=== PATIENT | female | born 1995 | race Caucasian/White ===

== ENCOUNTER 2021-11-11 04:37 | Inpatient (IN) ==
[2021-11-11] MEDS ORDERED: OXYTOCIN 30 UNITS/500 ML BAG IV PRN (06:24)
[2021-11-11] MEDS ORDERED: LIDOCAINE 1% LOCAL 20 ML VIAL INFIL PRN (06:24)
--- NOTE | 2021-11-11 06:42 | Labor Progress Brief Note ---
Date of Service November 11, 2021 Assessment & Plan (1) : Plan: met pt and reviewed PNC FHR; CAT1 Ctx 2-3mins VE by nurse /- Bedside sono; VT Plan admit labs anticipate VD Results & Data ([facility]) Vital Signs (Past 12 Hours) Vital Signs Temp Pulse Resp BP 11/11/21 04:53 80 118/71 11/11/21 04:55 36.6 C 18
[2021-11-11] MEDS: LACTATED RINGER'S 1,000 ML IV PRN ×4 (06:46→20:37)
[2021-11-11 06:53] LABS: Hemoglobin 11.8 g/dl (12.0-16.0); Mean Corpuscular Hemoglobin 30.9 pg (25.0-34.0); Mean Corpuscular Hgb Conc 34.7 g/dL (32.0-36.0); Mean Platelet Volume 10.3 fL (9.4-12.3); Platelet Count 219 K/uL (130-400); RDW Coefficient of Variation 12.5 % (11.5-14.5); RDW Standard Deviation 40.1 fL (36.4-46.3); Red Blood Count 3.82 M/uL (3.93-5.22); White Blood Count 14.12 K/ul (4.8-10.8)
[2021-11-11] MEDS ORDERED: fentaNYL citrate 100 MCG/2 ML VIAL ONE (07:08)
[2021-11-11] MEDS ORDERED: ePHEDrine sulfate 50 MG/ML AMP ONE (07:08)
[2021-11-11] MEDS ORDERED: BUPIVACAINE 0.25% 30 ML VIAL ONE (07:08)
[2021-11-11] MEDS ORDERED: SODIUM CHLORIDE 0.9% INJ 10 ML VIAL ONE (07:08)
[2021-11-11] MEDS ORDERED: LIDOCAINE 2%/EPINEPHRINE 1:200,000 20 ML SDV ONE (07:08)
[2021-11-11] MEDS ORDERED: fentaNYL 2MCG/ML ROPIVACAINE 1.25MG/ML 100 ML BAG EPI ONE (07:09)
[2021-11-11] MEDS ORDERED: NALOXONE HCL 1 MG in SODIUM CHLORIDE 0.9% 1000ML 1,000 ML IV PRN (08:24)
[2021-11-11] MEDS ORDERED: ONDANSETRON INJ 2 MG/ML 2 ML VIAL IV PRN (08:24)
[2021-11-11] MEDS ORDERED: NALOXONE HCL 0.4 MG/1 ML VIAL/CARP IV PRN (08:24)
[2021-11-11] MEDS ORDERED: PROMETHAZINE HCL 6.25 MG in SODIUM CHLORIDE 0.9% 50 ML IV PRN (08:24)
[2021-11-11] MEDS ORDERED: ePHEDrine sulfate 50 MG/ML AMP IV PRN (08:24)
[2021-11-11] MEDS ORDERED: diphenhydrAMINE 50 MG/ML VIAL IV PRN (08:24)
[2021-11-11] MEDS ORDERED: NALBUPHINE HCL INJ 10 MG/ML AMP IV PRN (08:24)
--- NOTE | 2021-11-11 08:24 | Anesthesiology Consultation ---
Date of Service November 11, 2021 Assessment & Plan Chart Review Chart Review: Patient NOT seen in Pre Admission Testing and Acceptable Risk for Labor Epidural Consults Requested none ASA ASA2 Proposed Anesthesia Anesthesia Type: Labor Epidural Risk / Benefits Reviewed With: PT / POA / Parent / Guardian, Accepts Plan and Informed Consent Obtained History Height/Weight Height: 5 ft Weight: 64.9 kg Allergies Allergy/AdvReac Type Severity Reaction Status Date / Time Penicillins Allergy Hives Verified 04/17/20 16:55 Medications Home Medications Medication Instructions Recorded Confirmed Last Taken 1 tab PO DAILY 11/09/21 11/11/21 Unknown Active Medications Generic Name Dose Route Start Last Admin Trade Name Freq PRN Reason Stop Dose Admin Lactated Ringer's 1,000 mls @ 125 mls/hr 11/11/21 06:24 11/11/21 08:06 Lr IV 11/13/21 06:23 999 mls/hr .Q8H PRN Infusion L&D Protocol Protocol Past Medical History Medical History Colonoscopy planned 2016 Normal esophagogastroduodenoscopy (EGD) 2016 Exercise / Class Metabolic Activity II 4-5 Yardwork/Stairs/Walk up hill Past Surgical History Surgical History [place] teeth extracted 2009 Past Anesthesia History No Hx of Anesthesia Complications and No Family Hx of Anesthesia Complications History of PONV No Hx of PONV and No Hx of Motion Sickness Social History Smoking Status: Never smoker Hx Alcohol Use: No Hx Substance Use: No Physical Exam Vital Signs Last Vital Signs Temp 36.5 C 11/11/21 06:56 Pulse 74 11/11/21 08:21 Resp 20 11/11/21 06:56 BP 102/60 11/11/21 08:21 Pulse Ox 100 11/11/21 08:20 ENMT Mouth: no dentition abnormality Thyromental Distance: > or= 3.5 Finger Breadths Mallampati Class: II Neck normal visual inspection Respiratory normal respiratory effort Auscultation: lungs clear to auscultation bilaterally Cardiovascular Rate/Rhythm: regular rate and regular rhythm Psychiatric Orientation: alert Testing Laboratory Results 11/11/21 06:41
--- NOTE | 2021-11-11 09:00 | Obstetrical Progress Note ---
Date of Service November 11, 2021 Assessment & Plan (1) : Present on Admission?: Yes (2) Normal labor: Present on Admission?: Yes Plan continue monitoring Admission and Anticipated Discharge Date Admission Date: November 11, 2021 Subjective normal labor Physical Exam Constitutional: WD/WN, vitals as above well developed and well nourished Genitourinary: no vaginal lesions, no adnexal mass Manual OB Exam: + cervical dilation 5 cm, + cervical effacement 80%, + station 0 and + amniotic fluid meconium OB Exam Monitor Tracing: + external FHT monitor used, + external uterine monitor used and + category I Results & Data ([facility]) Vital Signs (Past 12 Hours) Vital Signs Temp Pulse Resp BP Pulse Ox 11/11/21 08:50 83 100 11/11/21 08:45 69 100 11/11/21 08:43 69 102/62 11/11/21 08:40 73 100 11/11/21 08:35 77 100 11/11/21 08:30 79 100 11/11/21 08:27 66 107/62 11/11/21 08:25 100 11/11/21 08:25 77 11/11/21 08:25 71 105/66 11/11/21 08:23 77 103/65 11/11/21 08:20 70 100 11/11/21 08:21 74 102/60 11/11/21 08:19 66 20 99/58 L 11/11/21 08:17 67 100/58 L 11/11/21 08:15 64 104/57 L 99 11/11/21 08:13 78 110/61 11/11/21 08:10 79 100 11/11/21 08:05 85 99 11/11/21 08:00 83 97 11/11/21 06:56 36.5 C 62 20 109/67 11/11/21 04:53 80 118/71 11/11/21 04:55 36.6 C 18
[2021-11-11] MEDS: fentaNYL 2MCG/ML ROPIVACAINE 1.25MG/ML 100 ML BAG EPI PRN ×2 (16:01→20:36)
--- NOTE | 2021-11-11 21:14 | Delivery Summary ---
Vaginal Delivery Summary Date of Service November 11, 2021 Vaginal Delivery Summary pt fully dilated and pushing, placed in dorsal lithotomy position, prepped and draped in usual fashion, pt pushed or an hr, delivered alive viable male infant in JIM position, placed the on the mothers abdomen, bulb suctioned nose and mouth, cord clamped and cut by the FOB. Thck meconium noted. Placenta delivered spontaneously and complete. Second degree vaginal lacerations noted. 5 cc of local lidocaine injected. , repaired with 2.0 Vicryl. IV Pitocin started.
[2021-11-11] MEDS ORDERED: bisacodyL 10 MG SUPP PR PRN (21:16)
[2021-11-11] MEDS ORDERED: ACETAMINOPHEN 325 MG TAB PO PRN (21:16)
[2021-11-11] MEDS ORDERED: DIPHTHERIA/TETANUS/PERTUSSIS 0.5 ML SYR/VIAL IM ONE (21:16)
[2021-11-11] MEDS ORDERED: HYDROCORTISONE ACETATE 25 MG SUPP PR PRN (21:16)
[2021-11-11] MEDS ORDERED: BENZOCAINE 20% AER SPR 82.5 GM CAN EXT PRN (21:16)
[2021-11-12 06:59] LABS: Hematocrit (blood only) 27.7 % (34.1-44.9); Hemoglobin 9.5 g/dl (12.0-16.0); Mean Corpuscular Hemoglobin 30.4 pg (25.0-34.0); Mean Corpuscular Hgb Conc 34.3 g/dL (32.0-36.0); Mean Corpuscular Volume 88.5 fL (80.0-100.0); Mean Platelet Volume 10.4 fL (9.4-12.3); Platelet Count 198 K/uL (130-400); RDW Coefficient of Variation 12.7 % (11.5-14.5); RDW Standard Deviation 40.8 fL (36.4-46.3); Red Blood Count 3.13 M/uL (3.93-5.22); White Blood Count 21.66 K/ul (4.8-10.8)
[2021-11-12] MEDS: PRENATAL VITAMIN 1 TAB PO SCH (08:31)
[2021-11-12] MEDS: IBUPROFEN 600 MG TAB PO PRN ×2 (08:31→20:36)
[2021-11-12] MEDS: DOCUSATE SODIUM 100 MG CAP PO SCH ×2 (08:31→20:37)
--- NOTE | 2021-11-12 09:07 | Anesthesia Procedure Note ---
Date of Service November 12, 2021 Anesthesia Post Epidural Note Vital Signs Vital Signs: Temp Pulse Resp BP Pulse Ox O2 Del Method 98.2 F 83 16 104/66 98 11/12/21 04:30 11/12/21 04:30 11/12/21 04:30 11/12/21 04:30 11/12/21 04:30 11/12/21 04:30 Pain Intensity Lower Back: Pain Intensity: 4 Notes Mental Status: alert / awake / arousable and participated in evaluation Nausea / Vomiting: adequately controlled Pain: adequately controlled Airway Patency, RR, SpO2: stable & adequate BP & HR: stable & adequate Hydration State: stable & adequate Neuraxial Anesthesia: was administered and sensory block is resolving Anesthetic Complications: no major complications apparent and Pt Satisfied with anesthetic care Epidural: Removed without complications and With tip intact
[2021-11-12] MEDS: ACETAMINOPHEN 500 MG TAB PO PRN ×2 (10:55→16:11)
--- NOTE | 2021-11-12 11:37 | Obstetrical Progress Note ---
Date of Service November 12, 2021 Subjective Ambulation: ambulating normally Voiding: no voiding problems Passing Gas:: Yes Diet Tolerance:: regular diet Lochia:: Small Feeding Type:: breast feeding Current Pain Level(1-10): 0 doing well Physical Exam Constitutional WD/WN, vitals as above Gastrointestinal (Abdomen) Inspection/Auscultation: abdomen normal to inspection abdomen soft and non-tender. fundus firm below U Musculoskeletal Extremities: extremities normal to inspection neg Pennie's Skin no rashes, warm and dry Neurologic patellar DTR's 2+ bilat, sensation intact Psychiatric A+Ox3, euthymic affect Results & Data ([facility]) Vital Signs (Past 12 Hours) Vital Signs Temp Pulse Resp BP Pulse Ox O2 Del Method 11/12/21 11:00 36.6 C 78 16 108/75 98 Room Air 11/12/21 08:20 Room Air 11/12/21 08:20 37 C 65 16 107/67 99 Room Air 11/12/21 04:30 36.8 C 83 16 104/66 98 Room Air 11/12/21 00:45 37.3 C 84 16 109/69 97 Room Air Laboratory Results Laboratory Results - last 48 hr 11/11/21 11/11/21 11/12/21 06:41 07:05 06:47 WBC 14.12 H 21.66 H RBC 3.82 L 3.13 L Hgb 11.8 L 9.5 L Hct 34.0 L 27.7 L MCV 89.0 88.5 MCH 30.9 30.4 MCHC 34.7 34.3 RDW Std Deviation 40.1 40.8 RDW Coeff of Kaela 12.5 12.7 Plt Count 219 198 MPV 10.3 10.4 SARS-CoV-2, RNA, NAAT NEGATIVE
[2021-11-12] MEDS ORDERED: bisacodyL 5 MG TABEC PO SCH (20:00)
[2021-11-13] MEDS: ACETAMINOPHEN 500 MG TAB PO PRN ×2 (01:49→12:31)
[2021-11-13 06:36] LABS: Hematocrit (blood only) 24.1 % (34.1-44.9); Hemoglobin 8.3 g/dl (12.0-16.0)
[2021-11-13] MEDS: DOCUSATE SODIUM 100 MG CAP PO SCH (07:55)
[2021-11-13] MEDS: PRENATAL VITAMIN 1 TAB PO SCH (07:55)
[2021-11-13] MEDS: IBUPROFEN 600 MG TAB PO PRN (07:56)
--- NOTE | 2021-11-13 12:05 | Obstetrical Progress Note ---
Date of Service November 13, 2021 Assessment & Plan (1) Normal labor: PPD #2 pt doing well no complaints d/c home with instructions Subjective Ambulation: ambulating normally Voiding: no voiding problems Passing Gas:: Yes Diet Tolerance:: regular diet Lochia:: Small Feeding Type:: breast feeding Review of Systems All systems reviewed & are unremarkable except as noted in HPI & below Physical Exam Constitutional WD/WN, vitals as above well developed and well nourished Eyes PERRL, conjunctivae normal, anicteric sclerae Neck trachea midline, no thyromegaly Respiratory normal respiratory effort, lungs clear to auscultation Auscultation: no crackles, no rales and no wheezes Cardiovascular RRR, no murmur, no edema Gastrointestinal (Abdomen) normal bowel sounds, soft, nontender, no hepatosplenomegaly Uterus is below umbilicus Musculoskeletal no cyanosis or clubbing, extremities motor strength 5/5 Skin no rashes, warm and dry Neurologic patellar DTR's 2+ bilat, sensation intact Psychiatric A+Ox3, euthymic affect Genitourinary normal external appearance Results & Data ([facility]) Vital Signs (Past 12 Hours) Vital Signs Temp Pulse Resp BP Pulse Ox O2 Del Method 11/13/21 08:00 36.7 C 82 16 113/73 98 Room Air
== END 2021-11-13 14:00 | disposition home or self-care (01) | DRG 807 ==
LOC: OPB 04:37 → 4S1 04:40 → 4E2 23:44
DX: Z3A.39 39 weeks gestation of pregnancy; Z37.0 Single live birth; O70.1 Second degree perineal laceration during delivery

== ENCOUNTER 2024-12-15 12:40 | Inpatient (IN) ==
[2024-12-15] MEDS ORDERED: LIDOCAINE 1% LOCAL 20 ML VIAL INFIL PRN (13:13)
[2024-12-15] MEDS ORDERED: OXYTOCIN 30 UNITS/NSS 30 UNITS/500 ML BAG IV PRN ×2 (13:13→19:29)
[2024-12-15 13:43] LABS: Hematocrit (blood only) 34.7 % (37.0-47.0); Hemoglobin 11.6 g/dl (12.0-16.0); Mean Corpuscular Hemoglobin 28.4 pg (25.0-34.0); Mean Corpuscular Volume 85.0 fL (80.0-100.0); Platelet Count 226 K/uL (130-400); RDW Standard Deviation 40.1 fL (36.4-46.3); Red Blood Count 4.08 M/uL (4.20-5.40); White Blood Count 11.57 K/ul (4.8-10.8)
[2024-12-15] MEDS: LACTATED RINGER'S 1,000 ML IV PRN (15:08)
--- NOTE | 2024-12-15 17:35 | Anesthesiology Consultation ---
Date of Service December 15, 2024 Assessment & Plan Chart Review Chart Review: Acceptable Risk for Surgery, Patient NOT seen in Pre Admission Testing and Acceptable Risk for Labor Epidural Consults Requested none ASA ASA2 Proposed Anesthesia Anesthesia Type: Labor Epidural and CSE History Height/Weight Height: 5 ft 5 in Weight: 65.317 kg Allergies Allergy/AdvReac Type Severity Reaction Status Date / Time amoxicillin Allergy Rash Verified 12/11/24 11:31 Penicillins Allergy Hives Verified 12/11/24 11:31 Medications Home Medications Medication Instructions Recorded Confirmed Last Taken No Known Home Medications 11/11/24 12/15/24 Unknown Active Medications Generic Name Dose Route Start Last Admin Trade Name Freq PRN Reason Stop Dose Admin Lactated Ringer's 1,000 mls @ 125 mls/hr 12/15/24 13:13 12/15/24 17:33 Lr IV 12/17/24 13:12 125 mls/hr .Q8H PRN Administration L&D Protocol Protocol Past Medical History Medical History Palpitations ASCUS with positive high risk HPV cervical Encounter for surveillance of nuvaring Endometriosis ADHD SAB (spontaneous ) Anemia GERD Exercise / Class Metabolic Activity II 4-5 Yardwork/Stairs/Walk up hill Past Family History Family History Mother Ovarian cancer Other Dyslipidemia Hypertension Osteoporosis Denies family history of Prostate cancer Myocardial infarction Breast cancer Colorectal cancer Past Surgical History Surgical History Colonoscopy planned 2016 Normal esophagogastroduodenoscopy (EGD) 2017 History of colposcopy 2020, ASCUS/hpv + [place] teeth extracted 2009 Past Anesthesia History No Hx of Anesthesia Complications and No Family Hx of Anesthesia Complications History of PONV No Hx of PONV and No Hx of Motion Sickness Social History Smoking Status: Never smoker Do You Dip or Chew Tobacco: No Hx Alcohol Use: No Hx Substance Use: No Physical Exam Vital Signs Last Vital Signs Temp 36.8 C 12/15/24 17:20 Pulse 80 12/15/24 17:31 Resp 20 12/15/24 17:20 BP 116/69 12/15/24 17:20 Pulse Ox 92 12/15/24 17:31 Testing Laboratory Results 12/15/24 13:25 Electrocardiogram Date: 02/12/24 Findings: + NSR @ (@ 90) Echocardiogram Date: 09/09/24 EF: 60% LV Function: normal RWMA: + none Valvular Disease: + no significant valvular disease Trace -mild TR
[2024-12-15] MEDS: BUPIVACAINE 0.25% PF 30 ML VIAL ONE (17:52)
[2024-12-15] MEDS: fentANYL 2 MCG/ML BUPIVacaine 0.125%-NSS 100ML BAG ONE (18:05)
[2024-12-15] MEDS ORDERED: NALBUPHINE HCL INJ 10 MG/ML AMP IV PRN (18:08)
[2024-12-15] MEDS ORDERED: SODIUM CHLORIDE 0.9% PF INJ 10 ML VIAL EPI STA (18:08)
[2024-12-15] MEDS ORDERED: BUPIVACAINE 0.25% PF 30 ML VIAL EPI PRN (18:08)
[2024-12-15] MEDS ORDERED: ROPIVACAINE 0.5% PF 5 MG/ML 20 ML VIAL EPI PRN (18:08)
[2024-12-15] MEDS ORDERED: NALOXONE HCL 0.4 MG/1 ML VIAL/CARP IV PRN (18:08)
[2024-12-15] MEDS ORDERED: diphenhydrAMINE 50 MG/ML VIAL IV PRN (18:08)
[2024-12-15] MEDS ORDERED: LIDOCAINE 2%/EPINEPHRINE 1:200,000 20 ML PF EPI STA (18:08)
[2024-12-15] MEDS ORDERED: LIDOCAINE 2% MPF LOCAL 5 ML VIAL EPI PRN (18:08)
[2024-12-15] MEDS ORDERED: fentANYL 2 MCG/ML BUPIVacaine 0.125%-NSS 100ML BAG EPI PRN (18:08)
[2024-12-15] MEDS ORDERED: BUPIVACAINE 0.25% PF 30 ML VIAL EPI STA (18:08)
[2024-12-15] MEDS ORDERED: PROMETHAZINE 6.25 MG/50.25 ML BAG IV PRN (18:08)
[2024-12-15] MEDS ORDERED: ONDANSETRON INJ 2 MG/ML 2 ML VIAL IV PRN (18:08)
[2024-12-15] MEDS ORDERED: SODIUM CHLORIDE 0.9% PF INJ 10 ML VIAL EPI PRN (18:08)
[2024-12-15] MEDS ORDERED: NALOXONE HCL 1 MG in SODIUM CHLORIDE 0.9% 1,000 ML IV PRN (18:08)
[2024-12-15] MEDS: LIDOCAINE 2%/EPINEPHRINE 1:200,000 20 ML PF ONE (18:33)
[2024-12-15] MEDS: SODIUM CHLORIDE 0.9% PF INJ 10 ML VIAL ONE (18:34)
[2024-12-15] MEDS ORDERED: NURSING L&D Epidural Breakthrough Pain Update ONE (20:24)
[2024-12-15] MEDS: OXYTOCIN 30 UNITS/NSS 30 UNITS/500 ML BAG IV PRN (23:30)
--- NOTE | 2024-12-15 23:36 | Delivery Summary ---
Vaginal Delivery Summary Date of Service December 15, 2024 Vaginal Delivery Summary and 1st Degree LAC Spontaneous vaginal delivery the patient arrived in active labor second baby at term was 4-1/2 cm she requested epidural after this artificial rupture of membranes for thin meconium she did require some Pitocin augmentation but then presented to fully dilated pushed only for 2 contractions delivering a baby in occiput anterior position once the head was delivered there was no nuchal cord gentle traction allowed delivery of the anterior shoulder under the symphysis pubis gentle traction of the baby resulted in easy delivery no excessive force live vigorous female Cord clamped and cut 1 minute of delayed cord clamping. Bulb suction to the baby placenta removed with traction and simple interrupted 3-0 Vicryl for a small abrasion near the posterior fourchette Pitocin was started for after delivery of the placenta it should also be noted there was a QBL of 10 mL MNPG Vaginal Delivery Charge Delivery Type Details: and 1st Degree LAC
[2024-12-15] MEDS ORDERED: HYDROCORTISONE ACETATE 25 MG SUPP PR PRN (23:43)
[2024-12-15] MEDS: ACETAMINOPHEN 325 MG TAB PO PRN (23:55)
[2024-12-16] MEDS: BENZOCAINE 20% SPRY 85 APPLN/85 GM CAN EXT PRN (01:37)
[2024-12-16] MEDS: DIPHTHER/TETAN/PERTUS Vaccine (Tdap, Adol/Adult) 0.5mL IM ONE (01:58)
[2024-12-16] MEDS: IBUPROFEN 600 MG TAB PO PRN (04:28)
[2024-12-16 06:21] LABS: Hematocrit (blood only) 30.6 % (37.0-47.0); Hemoglobin 10.3 g/dl (12.0-16.0); Mean Corpuscular Hemoglobin 28.8 pg (25.0-34.0); Mean Corpuscular Volume 85.5 fL (80.0-100.0); Platelet Count 192 K/uL (130-400); RDW Standard Deviation 40.8 fL (36.4-46.3); Red Blood Count 3.58 M/uL (4.20-5.40); White Blood Count 13.74 K/ul (4.8-10.8)
--- NOTE | 2024-12-16 06:36 | Obstetrical Progress Note ---
Date of Service December 16, 2024 Assessment & Plan (1) care following vaginal delivery: Plan 29 yo post- day 1 s/p . Feels well today. Vital signs stable Continue post- care Encourage ambulation and Pain controlled with ibuprofen Hgb stable Admission and Anticipated Discharge Date Admission Date: December 15, 2024 Supervising Physician Co-Signing Physician Notes Resident Physician Supervision Note: I interviewed and examined the patient. Discussed with Dr. Ojeda and agree with findings and plan as documented in the note. Any exceptions or clarifications are listed here: [None] Documented By: Roseann Baker MD, FACOG Subjective 29 yo post- day 1 s/p . Ambulation: ambulating normally Voiding: no voiding problems Passing Gas:: Yes Passing Stool:: no Diet Tolerance:: regular diet Lochia:: Small Feeding Type:: breast and bottle feeding Current Pain Level: 5/10 Resting comfortably this AM in NAD. Denies DHILLON, CP, SOB, N/V/D, LE pain/swelling. Review of Systems Review of Systems: All systems reviewed & are unremarkable except as noted in HPI & below Physical Exam Physical Exam: General: patient resting comfortably, NAD, non-toxic in appearance, AA&O x 4, answers questions appropriately. Skin: warm, dry, intact HEENT: NC/AT, anicteric sclera, conjunctiva without injection, moist mucus membranes. Heart: +S1/S2, regular, no m/r/g Lungs: equal air entry bilaterally, no rales/rhonchi/wheezes Abd: +BS, soft, NT/ND, uterine fundus firm 2 FBs below umbilicus Ext: warm, no clubbing/cyanosis or edema, Pennie's neg. Neuro: nonfocal, patient AA&O x 4, speech intact, no facial droop, moving all extremities on command. Results & Data Vital Signs (Past 12 Hours) Vital Signs Temp Pulse Pulse Resp BP BP Pulse Ox 12/16/24 04:50 36.5 C 61 18 101/66 98 12/16/24 02:12 36.9 C 77 18 101/66 98 12/16/24 01:35 36.9 C 20 12/16/24 01:31 88 105/58 L 12/16/24 01:07 81 114/54 L 12/16/24 00:50 85 112/57 L 12/16/24 00:35 36.8 C 18 12/16/24 00:35 86 121/65 12/16/24 00:20 81 111/58 L 12/16/24 00:06 78 115/51 L 12/15/24 23:51 98 H 12/15/24 23:51 161/67 H 12/15/24 23:50 20 12/15/24 23:35 18 12/15/24 23:35 123 H 12/15/24 23:35 99/55 L 12/15/24 23:29 70 12/15/24 23:29 112/55 L 12/15/24 23:15 141 H 12/15/24 23:15 113/64 12/15/24 23:00 71 12/15/24 23:00 95/50 L 12/15/24 22:46 68 12/15/24 22:46 105/51 L 12/15/24 22:30 69 12/15/24 22:30 116/64 12/15/24 22:14 83 12/15/24 22:14 108/55 L 12/15/24 22:00 68 12/15/24 22:00 112/60 12/15/24 21:44 75 12/15/24 21:44 115/62 12/15/24 21:35 36.7 C 12/15/24 21:29 75 12/15/24 21:29 113/63 12/15/24 21:16 85 12/15/24 21:16 144/85 H 12/15/24 21:00 78 12/15/24 21:00 124/62 12/15/24 20:46 79 12/15/24 20:46 102/60 12/15/24 20:30 70 12/15/24 20:30 101/55 L 12/15/24 20:20 100 12/15/24 20:20 85 12/15/24 20:15 100 12/15/24 20:15 65 12/15/24 20:15 112/66 12/15/24 20:10 100 12/15/24 20:10 71 12/15/24 20:05 100 12/15/24 20:05 69 12/15/24 20:00 100 12/15/24 20:00 86 12/15/24 20:00 110/68 12/15/24 19:55 100 12/15/24 19:55 73 12/15/24 19:50 96 12/15/24 19:50 78 12/15/24 19:45 100 12/15/24 19:45 61 12/15/24 19:45 65 12/15/24 19:45 112/66 12/15/24 19:40 100 12/15/24 19:40 97 H 12/15/24 19:35 100 12/15/24 19:35 67 12/15/24 19:30 100 12/15/24 19:30 65 12/15/24 19:29 68 12/15/24 19:29 91/55 L 12/15/24 19:25 100 12/15/24 19:25 69 12/15/24 19:20 100 12/15/24 19:20 73 12/15/24 19:15 100 12/15/24 19:15 74 12/15/24 19:14 65 12/15/24 19:14 100/58 L 12/15/24 19:10 100 12/15/24 19:10 65 12/15/24 19:05 100 12/15/24 19:05 66 12/15/24 19:00 100 12/15/24 19:00 67 12/15/24 19:00 65 12/15/24 19:00 98/51 L 12/15/24 18:55 36.8 C 18 12/15/24 18:55 99 12/15/24 18:55 73 12/15/24 18:50 100 12/15/24 18:50 67 12/15/24 18:45 99 12/15/24 18:45 65 12/15/24 18:45 62 12/15/24 18:45 104/62 12/15/24 18:40 98 12/15/24 18:40 66 O2 Del Method 12/16/24 04:50 Room Air 12/16/24 02:12 Room Air 12/16/24 01:35 12/16/24 01:31 12/16/24 01:07 12/16/24 00:50 12/16/24 00:35 12/16/24 00:35 12/16/24 00:20 12/16/24 00:06 12/15/24 23:51 12/15/24 23:51 12/15/24 23:50 12/15/24 23:35 12/15/24 23:35 12/15/24 23:35 12/15/24 23:29 12/15/24 23:29 12/15/24 23:15 12/15/24 23:15 12/15/24 23:00 12/15/24 23:00 12/15/24 22:46 12/15/24 22:46 12/15/24 22:30 12/15/24 22:30 12/15/24 22:14 12/15/24 22:14 12/15/24 22:00 12/15/24 22:00 12/15/24 21:44 12/15/24 21:44 12/15/24 21:35 12/15/24 21:29 12/15/24 21:29 12/15/24 21:16 12/15/24 21:16 12/15/24 21:00 12/15/24 21:00 12/15/24 20:46 12/15/24 20:46 12/15/24 20:30 12/15/24 20:30 12/15/24 20:20 12/15/24 20:20 12/15/24 20:15 12/15/24 20:15 12/15/24 20:15 12/15/24 20:10 12/15/24 20:10 12/15/24 20:05 12/15/24 20:05 12/15/24 20:00 12/15/24 20:00 12/15/24 20:00 12/15/24 19:55 12/15/24 19:55 12/15/24 19:50 12/15/24 19:50 12/15/24 19:45 12/15/24 19:45 12/15/24 19:45 12/15/24 19:45 12/15/24 19:40 12/15/24 19:40 12/15/24 19:35 12/15/24 19:35 12/15/24 19:30 12/15/24 19:30 12/15/24 19:29 12/15/24 19:29 12/15/24 19:25 12/15/24 19:25 12/15/24 19:20 12/15/24 19:20 12/15/24 19:15 12/15/24 19:15 12/15/24 19:14 12/15/24 19:14 12/15/24 19:10 12/15/24 19:10 12/15/24 19:05 12/15/24 19:05 12/15/24 19:00 12/15/24 19:00 12/15/24 19:00 12/15/24 19:00 12/15/24 18:55 12/15/24 18:55 12/15/24 18:55 12/15/24 18:50 12/15/24 18:50 12/15/24 18:45 12/15/24 18:45 12/15/24 18:45 12/15/24 18:45 12/15/24 18:40 12/15/24 18:40 Laboratory Results OB Labs: Blood Type A Positive 06/06/24 Antibody Screen NEGATIVE 06/06/24 Hgb 12.1 g/dl (12.0-16.0) 09/27/24 Hct 35.5 % (37.0-47.0) L 09/27/24 MCV 92.3 fL (80.0-100.0) 06/06/24 Plt Count 245 K/uL (130-400) 06/06/24 Rubella IgG Antibody Immune (Immune) 06/06/24 Treponema pallidum Ab Negative (Negative) 09/27/24 Hep Bs Antigen Negative (Negative) 06/06/24 Hepatitis C Antibody Negative (Negative) 06/06/24 HIV 1&2 Ab/P24 Ag 4thGn Negative (Negative) 06/06/24 Glucose 1 Hr 50 gm 90 mg/dl (70-130) 09/27/24 Maternal Serum AFP 42.4 ng/mL 07/04/24 OB Optional Labs: Chlamydia trachomatis RNA Not Detected (NotDetected) 06/06/24 Neisseria gonorrhoeae RNA Not Detected (NotDetected) 06/06/24 Thyroid Stimulating Hormone (TSH) 1.820 uIu/ml (0.300-4.500) 02/12/24 Alpha Fetoprotein Triple Screen SEE NOTE 07/04/24 Resident Activity Tracking Resident Involvement: Resident Care Provided Care Provided: OB Delivery
[2024-12-16] MEDS: DOCUSATE SODIUM 100 MG CAP PO SCH (08:14)
[2024-12-16] MEDS: PRENATAL VITAMIN 1 TAB PO SCH (08:14)
--- NOTE | 2024-12-16 10:20 | Anesthesia Procedure Note ---
Date of Service December 16, 2024 Anesthesia Post Epidural Note Vital Signs Vital Signs: Temp Pulse Resp BP Pulse Ox O2 Del Method 36.9 C 62 16 103/66 99 Room Air 12/16/24 08:00 12/16/24 08:00 12/16/24 08:00 12/16/24 08:00 12/16/24 08:00 12/16/24 08:00 Pain Intensity Bilateral Abdomen: Pain Intensity: 5 Episiotomy/Laceration: Pain Intensity: 4 Notes Mental Status: alert / awake / arousable and participated in evaluation Nausea / Vomiting: adequately controlled Pain: adequately controlled Airway Patency, RR, SpO2: stable & adequate BP & HR: stable & adequate Hydration State: stable & adequate Neuraxial Anesthesia: was administered and sensory block resolved Anesthetic Complications: no major complications apparent and Pt Satisfied with anesthetic care Epidural: Removed without complications and With tip intact
[2024-12-16 19:56] VITALS: RESP 18; O2SAT 98
--- NOTE | 2024-12-17 06:52 | Obstetrical Progress Note ---
Date of Service December 17, 2024 Assessment & Plan (1) care following vaginal delivery: Plan 29 yo post- day 2 s/p . Feels well today. Vital signs stable Continue post- care Encourage ambulation and Pain controlled with ibuprofen Hgb stable Discharge today, follow with Dr. Baker in 6 weeks. Admission and Anticipated Discharge Date Admission Date: December 15, 2024 Supervising Physician Co-Signing Physician Notes Patient seen with resident and agree with the above findings and plan. Patient doing well and requesting discharge today. Subjective 29 yo post- day 2 s/p . Ambulation: ambulating normally Voiding: no voiding problems Passing Gas:: Yes Passing Stool:: no Diet Tolerance:: regular diet Lochia:: Small Feeding Type:: breast and bottle feeding Current Pain Level: 3/10 Resting comfortably this AM in NAD. Denies DHILLON, CP, SOB, N/V/D, LE pain/swelling. Review of Systems Review of Systems: All systems reviewed & are unremarkable except as noted in HPI & below Physical Exam Physical Exam: General: patient resting comfortably, NAD, non-toxic in appearance, AA&O x 4, answers questions appropriately. Skin: warm, dry, intact HEENT: NC/AT, anicteric sclera, conjunctiva without injection, moist mucus membranes. Heart: +S1/S2, regular, no m/r/g Lungs: equal air entry bilaterally, no rales/rhonchi/wheezes Abd: +BS, soft, NT/ND, uterine fundus firm 2 FBs below umbilicus Ext: warm, no clubbing/cyanosis or edema, Pennie's neg. Neuro: nonfocal, patient AA&O x 4, speech intact, no facial droop, moving all extremities on command. Results & Data Vital Signs (Past 12 Hours) Vital Signs Temp Pulse Resp BP Pulse Ox O2 Del Method 12/16/24 23:12 36.5 C 67 18 105/67 98 Room Air 12/16/24 19:30 36.6 C 76 18 105/69 98 Room Air Laboratory Results OB Labs: Blood Type A Positive 06/06/24 Antibody Screen NEGATIVE 06/06/24 Hgb 12.1 g/dl (12.0-16.0) 09/27/24 Hct 35.5 % (37.0-47.0) L 09/27/24 MCV 92.3 fL (80.0-100.0) 06/06/24 Plt Count 245 K/uL (130-400) 06/06/24 Rubella IgG Antibody Immune (Immune) 06/06/24 Treponema pallidum Ab Negative (Negative) 09/27/24 Hep Bs Antigen Negative (Negative) 06/06/24 Hepatitis C Antibody Negative (Negative) 06/06/24 HIV 1&2 Ab/P24 Ag 4thGn Negative (Negative) 06/06/24 Glucose 1 Hr 50 gm 90 mg/dl (70-130) 09/27/24 Maternal Serum AFP 42.4 ng/mL 07/04/24 OB Optional Labs: Chlamydia trachomatis RNA Not Detected (NotDetected) 06/06/24 Neisseria gonorrhoeae RNA Not Detected (NotDetected) 06/06/24 Thyroid Stimulating Hormone (TSH) 1.820 uIu/ml (0.300-4.500) 02/12/24 Alpha Fetoprotein Triple Screen SEE NOTE 07/04/24 Resident Activity Tracking Resident Involvement: Resident Care Provided Care Provided: OB Delivery
[2024-12-17 08:11] VITALS: BP 111/72; PULSE 57; TEMP 97.9
--- NOTE | 2024-12-18 09:49 | Coding Query ---
CODING QUERY To promote full compliance with coding requirements relating to patient care, provider participation is requested in all cases of cook ship uncertainty. Please assist us with the question(s) below: Coding Question(s): Please specify below, the number of weeks gestation of the upon admission: ( ) Specified number of weeks gestation of upon admission. Please Specify the number of weeks gestation:____40 ( ) Unknown number of weeks gestation of upon admission Physician's Response(s): Thank you Mercedes Olivares Principal Diagnosis: "that condition established after study, to be chiefly responsible for occasioning the admission of the patient to the hospital for care." Co-Existing Principal Diagnosis: "when two or more diagnoses equally meet the criteria for principal diagnosis as determined by the circumstances of admission, diagnostic work up, and/or therapy provided, and the Alphabetic Index, Tabular List, or another coding guideline does not provide sequencing direction, any one of the diagnoses may be sequenced first." "When the physician has documented what appears to be a current diagnosis in the body of the record, but has not included the diagnosis in the final diagnostic statement, the physician should be asked whether the diagnosis should be added." (Source [facility]oding [facility] 2 QTR90. p3-4) LES
== END 2024-12-17 11:00 | disposition home or self-care (01) | DRG 807 ==
LOC: OPB 12:40 → 4S1 12:41 → 4E2 12-16 01:59